=== PATIENT | female | born 1935 | race African-American/Black ===

== ENCOUNTER 2017-02-26 05:39 | Inpatient (IN) ==
[~2017-02-26 05:39] MED LIST: IPRATROPIUM 500 MCG/2.5 ML NEB RESP TX ONE
[2017-02-26] MEDS ORDERED: VANCOMYCIN INJ 1,000 MG in SODIUM CHLORIDE 0.9% 250 ML IV ONE (06:00)
[2017-02-26] MEDS ORDERED: ALBUTEROL 2.5 MG/3 ML NEB RESP TX ONE (06:00)
[2017-02-26] MEDS ORDERED: LORazepam 1 MG TABLET PO ONE (06:00)
[2017-02-26] MEDS ORDERED: FAMOTIDINE 20 MG TABLET PO ONE (06:00)
[2017-02-26] MEDS ORDERED: LORazepam 1 MG TABLET ONE (06:01)
[2017-02-26] MEDS ORDERED: VANCOMYCIN 1,000 MG VIAL ONE (06:01)
[2017-02-26] MEDS ORDERED: ceFAZolin 1,000 MG VIAL ONE (06:01)
[2017-02-26] MEDS ORDERED: FAMOTIDINE 20 MG TABLET ONE (06:01)
[2017-02-26] MEDS ORDERED: BACITRACIN OINT 0.9 GM PACK TOP ONE (06:36)
[2017-02-26] MEDS ORDERED: TRANEXAMIC ACID 1,000 MG/10 ML VIAL IV ONE (06:36)
[2017-02-26] MEDS ORDERED: LACTATED RINGERS 1,000 ML IV SCH (07:00)
[2017-02-26] MEDS ORDERED: diphenhydrAMINE CAP 25 MG CAPSULE PO PRN (07:23)
[2017-02-26] MEDS ORDERED: oxyCODONE IR 5 MG TABLET PO PRN ×2 (07:23)
[2017-02-26] MEDS ORDERED: MORPHINE 2 MG/1 ML SYRINGE IV PRN (07:23)
[2017-02-26] MEDS ORDERED: ONDANSETRON 4 MG/2 ML VIAL IV PRN ×2 (07:23→11:39)
[2017-02-26] MEDS ORDERED: ROPIVACAINE 0.5% 30 ML VIAL ONE (08:37)
[2017-02-26] MEDS ORDERED: PROPOFOL 200 MG/20 ML VIAL IV ONE (09:03)
[2017-02-26] MEDS ORDERED: ACETAMINOPHEN 1,000 MG/100 ML VIAL IV ONE (09:04)
[2017-02-26] MEDS ORDERED: fentaNYL 100 MCG/2 ML VIAL ONE (09:04)
[2017-02-26] MEDS ORDERED: ONDANSETRON 4 MG/2 ML VIAL ONE (09:04)
[2017-02-26] MEDS ORDERED: MIDAZOLAM 2 MG/2 ML VIAL ONE (09:04)
[2017-02-26] MEDS: HYDROmorphone 2 MG/1 ML VIAL IV PRN ×3 (11:40→12:05)
[2017-02-26] MEDS: POLYETHYLENE GLYCOL POWDER 17 GM PACK PO SCH (13:29)
[2017-02-26] MEDS: CARVEDILOL 3.125 MG TABLET PO SCH ×2 (13:29→21:32)
[2017-02-26] MEDS: KETOROLAC 15 MG/1 ML VIAL IV SCH ×3 (13:32→18:54)
[2017-02-26] MEDS: MORPHINE 2 MG/1 ML SYRINGE IV PRN ×2 (13:37→20:09)
[2017-02-26] MEDS: LACTATED RINGERS 1,000 ML IV SCH (13:40)
[2017-02-26] MEDS: MULTIVITAMIN (CENTRUM) TABLET PO SCH (15:43)
[2017-02-26] MEDS: VITAMIN E PO SCH (15:44)
[2017-02-26] MEDS: CYANOCOBALAMIN 500 MCG TABLET PO SCH (15:44)
[2017-02-26] MEDS: LISINOPRIL 20 MG TABLET PO SCH (15:44)
[2017-02-26] MEDS: POTASSIUM CHLORIDE 10 MEQ TABLET PO SCH (15:45)
[2017-02-26] MEDS: DOCUSATE SODIUM 100 MG CAPSULE PO SCH ×2 (15:46→21:32)
[2017-02-26] MEDS: hydroCHLOROthiazide 25 MG TABLET PO SCH (16:03)
[2017-02-26] MEDS: SPIRONOLACTONE 25 MG TABLET PO SCH (16:03)
[2017-02-26] MEDS: PANTOPRAZOLE 40 MG TABLET PO SCH (16:03)
[2017-02-26] MEDS: ceFAZolin 2,000 MG in PREMIX 1 EACH IV SCH ×2 (16:09→22:36)
[2017-02-26] MEDS: SIMVASTATIN 40 MG TABLET PO SCH (21:32)
[2017-02-26] MEDS: tiZANidine 4 MG TABLET PO SCH (21:32)
[2017-02-26] MEDS: ZALEPLON 5 MG CAPSULE PO PRN (22:19)
[2017-02-27] MEDS: MORPHINE 2 MG/1 ML SYRINGE IV PRN ×4 (02:46→17:56)
[2017-02-27] MEDS: KETOROLAC 15 MG/1 ML VIAL IV SCH ×3 (02:47→08:31)
[2017-02-27] MEDS: FONDAPARINUX 2.5 MG/0.5 ML SYRINGE SUBCUT SCH (03:03)
[2017-02-27] MEDS: LACTATED RINGERS 1,000 ML IV SCH ×2 (03:39)
[2017-02-27 05:52] LABS: Basophils % 0.2 % (0.0-0.8); Eosinophils % 0.5 % (0.00-10.9); Hematocrit 25.2 VOL% (35.7-47.0); Hemoglobin 8.1 GM/DL (12.0-16.0); Immature Granulocytes % 0.3 %; Immature Granulocytes Absolute 0.03 #; Lymphocytes # 0.9 10*3/uL (1.4-4.0); Lymphocytes % 10.5 % (21.3-54.2); Mean Corpuscular HGB Conc 32.1 GM/DL (32-36); Mean Corpuscular Hemoglobin 27 PG (27-34); Mean Corpuscular Volume 83.2 FL (87-102); Mean Platelet Volume 9.4 FL (9.6-12.0); Monocytes # 0.8 10*3/uL (0.11-0.8); Monocytes % 9.2 % (1.7-12.7); Neutrophils # 6.9 10*3/uL (1.4-7.4); Neutrophils % 79.3 % (38.7-73.9); Platelet Count 161 T/CUMM (130-400); Red Blood Count 3.03 MC/CUMM (3.8-5.5); Red Cell Distribution Width 15.6 % (9.3-17.3); White Blood Count 8.7 T/CUMM (4-12)
[2017-02-27 06:24] LABS: Calcium 8.8 MG/DL (8.5-10.1); Osmolality,Calculated 274.1 MOS/KG (273-304); Potassium 4.5 MMOL/L (3.5-5.1)
[2017-02-27] MEDS: DOCUSATE SODIUM 100 MG CAPSULE PO SCH ×2 (08:31→21:57)
[2017-02-27] MEDS: POTASSIUM CHLORIDE 10 MEQ TABLET PO SCH (08:31)
[2017-02-27] MEDS: hydroCHLOROthiazide 25 MG TABLET PO SCH (08:31)
[2017-02-27] MEDS: CYANOCOBALAMIN 500 MCG TABLET PO SCH (08:32)
[2017-02-27] MEDS: LISINOPRIL 20 MG TABLET PO SCH (08:32)
[2017-02-27] MEDS: PANTOPRAZOLE 40 MG TABLET PO SCH (08:32)
[2017-02-27] MEDS: POLYETHYLENE GLYCOL POWDER 17 GM PACK PO SCH (08:33)
[2017-02-27] MEDS: MULTIVITAMIN (CENTRUM) TABLET PO SCH (08:33)
[2017-02-27] MEDS: CARVEDILOL 3.125 MG TABLET PO SCH ×2 (08:33→21:57)
[2017-02-27] MEDS: SPIRONOLACTONE 25 MG TABLET PO SCH (08:33)
[2017-02-27] MEDS: VITAMIN E PO SCH (08:41)
[2017-02-27] MEDS ORDERED: SODIUM CHLORIDE 0.9% 1,000 ML IV PRN (11:04)
[2017-02-27] MEDS: FERROUS SULFATE 325 MG TABLET PO SCH (11:38)
[2017-02-27] MEDS: ASCORBIC ACID 500 MG TABLET PO SCH (11:38)
[2017-02-27] MEDS: MONTELUKAST 10 MG TABLET PO SCH (11:38)
[2017-02-27 11:44] LABS: % Iron Saturation 8.3 % (18-50)
[2017-02-27] MEDS: ZALEPLON 5 MG CAPSULE PO PRN (21:56)
[2017-02-27] MEDS: tiZANidine 4 MG TABLET PO SCH (21:57)
[2017-02-27] MEDS: AMITRIPTYLINE 25 MG TABLET PO SCH (21:57)
[2017-02-27] MEDS: SIMVASTATIN 40 MG TABLET PO SCH (21:58)
[2017-02-28] MEDS: FONDAPARINUX 2.5 MG/0.5 ML SYRINGE SUBCUT SCH (02:45)
[2017-02-28 06:20] LABS: Basophils % 0.1 % (0.0-0.8); Eosinophils # 0.1 10*3/uL (0.0-0.87); Eosinophils % 1.1 % (0.00-10.9); Hematocrit 25.8 VOL% (35.7-47.0); Hemoglobin 8.5 GM/DL (12.0-16.0); Immature Granulocytes % 0.4 %; Immature Granulocytes Absolute 0.03 #; Lymphocytes # 0.7 10*3/uL (1.4-4.0); Lymphocytes % 8.6 % (21.3-54.2); Mean Corpuscular HGB Conc 32.9 GM/DL (32-36); Mean Corpuscular Hemoglobin 27 PG (27-34); Mean Platelet Volume 9.4 FL (9.6-12.0); Monocytes % 11.8 % (1.7-12.7); Neutrophils # 6.4 10*3/uL (1.4-7.4); Platelet Count 136 T/CUMM (130-400); Red Blood Count 3.11 MC/CUMM (3.8-5.5); Red Cell Distribution Width 15.3 % (9.3-17.3); White Blood Count 8.2 T/CUMM (4-12)
[2017-02-28 06:46] LABS: Calcium 8.8 MG/DL (8.5-10.1); Magnesium 2.1 MG/DL (1.8-2.4); Osmolality,Calculated 263.8 MOS/KG (273-304); Potassium 4.9 MMOL/L (3.5-5.1)
[2017-02-28] MEDS: ASCORBIC ACID 500 MG TABLET PO SCH (08:42)
[2017-02-28] MEDS: DOCUSATE SODIUM 100 MG CAPSULE PO SCH ×2 (08:43→20:12)
[2017-02-28] MEDS: POTASSIUM CHLORIDE 10 MEQ TABLET PO SCH (08:43)
[2017-02-28] MEDS: CYANOCOBALAMIN 500 MCG TABLET PO SCH (08:44)
[2017-02-28] MEDS: MULTIVITAMIN (CENTRUM) TABLET PO SCH (08:44)
[2017-02-28] MEDS: PANTOPRAZOLE 40 MG TABLET PO SCH (08:44)
[2017-02-28] MEDS: LISINOPRIL 20 MG TABLET PO SCH (08:44)
[2017-02-28] MEDS: CARVEDILOL 3.125 MG TABLET PO SCH ×2 (08:45→20:15)
[2017-02-28] MEDS: hydroCHLOROthiazide 25 MG TABLET PO SCH (08:45)
[2017-02-28] MEDS: FERROUS SULFATE 325 MG TABLET PO SCH (08:45)
[2017-02-28] MEDS: MONTELUKAST 10 MG TABLET PO SCH (08:45)
[2017-02-28] MEDS: POLYETHYLENE GLYCOL POWDER 17 GM PACK PO SCH (08:46)
[2017-02-28] MEDS: SPIRONOLACTONE 25 MG TABLET PO SCH (08:46)
[2017-02-28] MEDS ORDERED: MAGNESIUM HYDROXIDE SUSP 30 ML UDCUP PO PRN (08:48)
[2017-02-28] MEDS: VITAMIN E PO SCH (08:56)
[2017-02-28] MEDS ORDERED: BISACODYL 10 MG SUPP RECTAL PRN (09:40)
[2017-02-28] MEDS: MORPHINE 2 MG/1 ML SYRINGE IV PRN (09:57)
[2017-02-28 15:05] LABS: Apearance,Urine Slightly Hazy (Clear); Bacteria,Urine Occasional /HPF (Few); Bilirubin,Urine Negative (Negative); Blood, Urine Negative (Negative); Glucose,Urine (UA) Negative (Negative); Hyaline Casts,Urine 7 /LPF (0-3); Ketones,Urine Negative (Negative); Mucus,Urine Occasional /LPF (Occasional); Nitrite,Urine Negative (Negative); Protein,Urine Negative; RBC,Urine 1 /HPF (0-4); Squamous Epithelial Cell,Urine Occasional /HPF (0-10); Urine Color Yellow (Yellow); Urine Specific Gravity 1.016 (1.001-1.035); Urine Urobilinogen < 2.0 EU/DL (0.2-1.0); WBC,Urine 2 /HPF (0-6)
[2017-02-28] MEDS: MAGNESIUM HYDROXIDE SUSP 30 ML UDCUP PO PRN (17:00)
[2017-02-28] MEDS: AMITRIPTYLINE 25 MG TABLET PO SCH (20:12)
[2017-02-28] MEDS: tiZANidine 4 MG TABLET PO SCH (20:14)
[2017-02-28] MEDS: SIMVASTATIN 40 MG TABLET PO SCH (20:14)
[2017-02-28] MEDS: ZALEPLON 5 MG CAPSULE PO PRN (21:33)
[2017-03-01] MEDS: FONDAPARINUX 2.5 MG/0.5 ML SYRINGE SUBCUT SCH (03:01)
[2017-03-01 03:15] LABS: Basophils % 0.1 % (0.0-0.8); Eosinophils # 0.1 10*3/uL (0.0-0.87); Eosinophils % 1.1 % (0.00-10.9); Hematocrit 26.4 VOL% (35.7-47.0); Hemoglobin 8.8 GM/DL (12.0-16.0); Immature Granulocytes % 0.4 %; Immature Granulocytes Absolute 0.03 #; Lymphocytes # 0.8 10*3/uL (1.4-4.0); Lymphocytes % 9.9 % (21.3-54.2); Mean Corpuscular HGB Conc 33.3 GM/DL (32-36); Mean Corpuscular Hemoglobin 28 PG (27-34); Mean Corpuscular Volume 83.3 FL (87-102); Monocytes # 0.9 10*3/uL (0.11-0.8); Monocytes % 10.8 % (1.7-12.7); Neutrophils # 6.6 10*3/uL (1.4-7.4); Neutrophils % 77.7 % (38.7-73.9); Platelet Count 169 T/CUMM (130-400); Red Blood Count 3.17 MC/CUMM (3.8-5.5); Red Cell Distribution Width 15.4 % (9.3-17.3); White Blood Count 8.5 T/CUMM (4-12)
[2017-03-01 03:37] LABS: Calcium 8.4 MG/DL (8.5-10.1); Magnesium 2.9 MG/DL (1.8-2.4); Osmolality,Calculated 264.1 MOS/KG (273-304); Potassium 5.5 MMOL/L (3.5-5.1)
[2017-03-01] MEDS: MAGNESIUM HYDROXIDE SUSP 30 ML UDCUP PO PRN (08:20)
[2017-03-01] MEDS: POLYETHYLENE GLYCOL POWDER 17 GM PACK PO SCH (08:21)
[2017-03-01] MEDS: CYANOCOBALAMIN 500 MCG TABLET PO SCH (08:43)
[2017-03-01] MEDS: FERROUS SULFATE 325 MG TABLET PO SCH (08:44)
[2017-03-01] MEDS: ASCORBIC ACID 500 MG TABLET PO SCH (08:44)
[2017-03-01] MEDS: PANTOPRAZOLE 40 MG TABLET PO SCH (08:45)
[2017-03-01] MEDS: POTASSIUM CHLORIDE 10 MEQ TABLET PO SCH (08:46)
[2017-03-01] MEDS: LISINOPRIL 20 MG TABLET PO SCH (08:46)
[2017-03-01] MEDS: MONTELUKAST 10 MG TABLET PO SCH (08:46)
[2017-03-01] MEDS: MULTIVITAMIN (CENTRUM) TABLET PO SCH (08:47)
[2017-03-01] MEDS: VITAMIN E PO SCH (08:48)
[2017-03-01] MEDS: DOCUSATE SODIUM 100 MG CAPSULE PO SCH ×2 (08:49→20:43)
[2017-03-01] MEDS: CARVEDILOL 3.125 MG TABLET PO SCH ×2 (08:50→20:43)
[2017-03-01] MEDS ORDERED: SODIUM PHOSPHATE ENEMA 133 ML BOTTLE RECTAL PRN (09:15)
[2017-03-01] MEDS ORDERED: SODIUM PHOSPHATE ENEMA 133 ML BOTTLE RECTAL ONE (09:15)
[2017-03-01] MEDS: SPIRONOLACTONE 25 MG TABLET PO SCH (13:38)
[2017-03-01] MEDS: hydroCHLOROthiazide 25 MG TABLET PO SCH (13:38)
[2017-03-01] MEDS: AMITRIPTYLINE 25 MG TABLET PO SCH (20:41)
[2017-03-01] MEDS: tiZANidine 4 MG TABLET PO SCH (20:43)
[2017-03-01] MEDS: ZALEPLON 5 MG CAPSULE PO PRN (20:43)
[2017-03-01] MEDS: SIMVASTATIN 40 MG TABLET PO SCH (20:43)
[2017-03-01] MEDS: MORPHINE 2 MG/1 ML SYRINGE IV PRN (20:44)
[2017-03-02] MEDS: FONDAPARINUX 2.5 MG/0.5 ML SYRINGE SUBCUT SCH (01:43)
[2017-03-02] MEDS: CARVEDILOL 3.125 MG TABLET PO SCH ×2 (09:28→20:39)
[2017-03-02] MEDS: FERROUS SULFATE 325 MG TABLET PO SCH (09:28)
[2017-03-02] MEDS: hydroCHLOROthiazide 25 MG TABLET PO SCH (09:28)
[2017-03-02] MEDS: ASCORBIC ACID 500 MG TABLET PO SCH (09:28)
[2017-03-02] MEDS: LISINOPRIL 20 MG TABLET PO SCH (09:29)
[2017-03-02] MEDS: MONTELUKAST 10 MG TABLET PO SCH (09:29)
[2017-03-02] MEDS: MULTIVITAMIN (CENTRUM) TABLET PO SCH (09:29)
[2017-03-02] MEDS: SPIRONOLACTONE 25 MG TABLET PO SCH (09:29)
[2017-03-02] MEDS: DOCUSATE SODIUM 100 MG CAPSULE PO SCH ×2 (09:29→20:38)
[2017-03-02] MEDS: CYANOCOBALAMIN 500 MCG TABLET PO SCH (09:29)
[2017-03-02] MEDS: PANTOPRAZOLE 40 MG TABLET PO SCH (09:30)
[2017-03-02] MEDS: POLYETHYLENE GLYCOL POWDER 17 GM PACK PO SCH (09:30)
[2017-03-02] MEDS: POTASSIUM CHLORIDE 10 MEQ TABLET PO SCH (09:30)
[2017-03-02] MEDS: VITAMIN E PO SCH (09:31)
[2017-03-02] MEDS: SIMVASTATIN 40 MG TABLET PO SCH (20:38)
[2017-03-02] MEDS: ZALEPLON 5 MG CAPSULE PO PRN (20:38)
[2017-03-02] MEDS: AMITRIPTYLINE 25 MG TABLET PO SCH (20:38)
[2017-03-02] MEDS: tiZANidine 4 MG TABLET PO SCH (20:39)
[2017-03-03] MEDS: FONDAPARINUX 2.5 MG/0.5 ML SYRINGE SUBCUT SCH (02:08)
[2017-03-03 04:28] LABS: Basophils % 0.3 % (0.0-0.8); Eosinophils # 0.2 10*3/uL (0.0-0.87); Eosinophils % 3.3 % (0.00-10.9); Hematocrit 27.8 VOL% (35.7-47.0); Hemoglobin 9.1 GM/DL (12.0-16.0); Immature Granulocytes % 0.5 %; Immature Granulocytes Absolute 0.03 #; Lymphocytes % 17.8 % (21.3-54.2); Mean Corpuscular HGB Conc 32.7 GM/DL (32-36); Mean Corpuscular Hemoglobin 28 PG (27-34); Mean Corpuscular Volume 84.8 FL (87-102); Mean Platelet Volume 10.3 FL (9.6-12.0); Monocytes # 1.2 10*3/uL (0.11-0.8); Monocytes % 19.9 % (1.7-12.7); Neutrophils # 3.4 10*3/uL (1.4-7.4); Neutrophils % 58.2 % (38.7-73.9); Platelet Count 202 T/CUMM (130-400); Red Blood Count 3.28 MC/CUMM (3.8-5.5); Red Cell Distribution Width 15.8 % (9.3-17.3); White Blood Count 5.8 T/CUMM (4-12)
[2017-03-03 04:43] LABS: Calcium 9.1 MG/DL (8.5-10.1); Magnesium 2.5 MG/DL (1.8-2.4); Osmolality,Calculated 267.5 MOS/KG (273-304); Potassium 5.2 MMOL/L (3.5-5.1)
[2017-03-03 05:50] LABS: Band Neutrophils 1 % (0-10); Eosinophils 3 % (0-10); Giant Platelets Few; Hypochromasia 1+; Lymphocytes 22 % (20-55); Ovalocytes Slight; Platelet Estimate Adequate; Segmented Neutrophils 64 % (50-85); Total Cells Counted 100
[2017-03-03] MEDS: MULTIVITAMIN (CENTRUM) TABLET PO SCH (08:25)
[2017-03-03] MEDS: CARVEDILOL 3.125 MG TABLET PO SCH (08:25)
[2017-03-03] MEDS: MONTELUKAST 10 MG TABLET PO SCH (08:26)
[2017-03-03] MEDS: CYANOCOBALAMIN 500 MCG TABLET PO SCH (08:26)
[2017-03-03] MEDS: LISINOPRIL 20 MG TABLET PO SCH (08:26)
[2017-03-03] MEDS: SPIRONOLACTONE 25 MG TABLET PO SCH (08:27)
[2017-03-03] MEDS: ASCORBIC ACID 500 MG TABLET PO SCH (08:27)
[2017-03-03] MEDS: hydroCHLOROthiazide 25 MG TABLET PO SCH (08:27)
[2017-03-03] MEDS: FERROUS SULFATE 325 MG TABLET PO SCH (08:29)
[2017-03-03] MEDS: DOCUSATE SODIUM 100 MG CAPSULE PO SCH (08:29)
[2017-03-03] MEDS: POLYETHYLENE GLYCOL POWDER 17 GM PACK PO SCH (08:29)
[2017-03-03] MEDS: PANTOPRAZOLE 40 MG TABLET PO SCH (08:29)
[2017-03-03] MEDS: POTASSIUM CHLORIDE 10 MEQ TABLET PO SCH (09:03)
[2017-03-03] MEDS: VITAMIN E PO SCH (09:03)
[2017-03-03 11:33] VITALS: BP 140/75
[2017-03-04] MEDS ORDERED: VITAMIN E 400 UNIT CAPSULE PO SCH (09:00)
== END 2017-03-03 13:17 | disposition swing bed (61) | DRG 470 ==
LOC: N.OR 05:39 → N.SDSINP 05:41 → N.3E 12:45
PROVIDERS: ADMIT Orthopaedic Surgery; ATTEND Orthopaedic Surgery

== ENCOUNTER 2017-07-28 05:46 | Inpatient (IN) ==
[2017-07-28] MEDS ORDERED: ceFAZolin 1,000 MG in SYRINGE 1 EACH IV ONE (06:00)
[2017-07-28] MEDS ORDERED: VANCOMYCIN INJ 1,000 MG in SODIUM CHLORIDE 0.9% 250 ML IV ONE (06:00)
[2017-07-28] MEDS ORDERED: VANCOMYCIN 1,000 MG VIAL ONE (06:12)
[2017-07-28] MEDS ORDERED: ceFAZolin 1,000 MG VIAL ONE (06:12)
[2017-07-28] MEDS ORDERED: BUPIVACAINE SPINAL 0.75% 2 ML AMP SPINAL ONE (06:14)
[2017-07-28] MEDS ORDERED: PANTOPRAZOLE 40 MG TABLET PO ONE (06:36)
[2017-07-28] MEDS ORDERED: BACITRACIN OINT 0.9 GM PACK TOP ONE (06:37)
[2017-07-28 07:00] LABS: INR 0.9; Partial Thromboplastin Time 25.2 SECS (0-40)
[2017-07-28] MEDS ORDERED: LACTATED RINGERS 1,000 ML IV SCH (07:00)
[2017-07-28] MEDS ORDERED: diphenhydrAMINE CAP 25 MG CAPSULE PO PRN (07:34)
[2017-07-28] MEDS ORDERED: ONDANSETRON 4 MG/2 ML VIAL IV PRN ×2 (07:34→09:21)
[2017-07-28] MEDS ORDERED: MORPHINE 2 MG/1 ML SYRINGE IV PRN (07:34)
[2017-07-28] MEDS ORDERED: oxyCODONE IR 5 MG TABLET PO PRN ×2 (07:34)
[2017-07-28] MEDS ORDERED: TRANEXAMIC ACID 1,000 MG/10 ML VIAL IV ONE (07:41)
[2017-07-28] MEDS ORDERED: ROPIVACAINE 0.5% 30 ML VIAL ONE ×2 (08:57→09:51)
[2017-07-28] MEDS ORDERED: VITAMIN E PO SCH (09:00)
[2017-07-28] MEDS ORDERED: MIDAZOLAM 2 MG/2 ML VIAL ONE (09:20)
[2017-07-28] MEDS ORDERED: fentaNYL 100 MCG/2 ML VIAL ONE (09:20)
[2017-07-28] MEDS ORDERED: PROPOFOL 200 MG/20 ML VIAL IV ONE (09:20)
[2017-07-28] MEDS ORDERED: SEVOFLURANE 1 UNIT/15 MINUTE INH ONE (09:20)
[2017-07-28] MEDS ORDERED: ACETAMINOPHEN 1,000 MG/100 ML VIAL IV ONE (09:21)
[2017-07-28] MEDS ORDERED: ROCURONIUM 100 MG/10 ML VIAL IV ONE (09:21)
[2017-07-28] MEDS ORDERED: PROPOFOL 500 MG/50 ML BOTTLE IV ONE (09:21)
[2017-07-28] MEDS ORDERED: NEOSTIGMINE 10 MG/10 ML VIAL ONE (09:21)
[2017-07-28] MEDS ORDERED: KETAMINE 500 MG/10 ML VIAL ONE (09:21)
[2017-07-28] MEDS ORDERED: GLYCOPYRROLATE 0.4 MG/2 ML VIAL ONE (09:21)
[2017-07-28] MEDS: HYDROmorphone 2 MG/1 ML VIAL IV PRN ×4 (09:28→09:50)
[2017-07-28] MEDS: LACTATED RINGERS 1,000 ML IV SCH ×3 (09:32→19:42)
[2017-07-28] MEDS ORDERED: MORPHINE 4 MG/1 ML VIAL IV PRN ×2 (10:00)
[2017-07-28] MEDS: FERROUS SULFATE 325 MG TABLET PO SCH ×2 (13:03→20:14)
[2017-07-28] MEDS: CALCIUM (CARBONATE)/VITAMIN D 600 MG-400 UNIT TABLET PO SCH (13:03)
[2017-07-28] MEDS: DOCUSATE SODIUM 100 MG CAPSULE PO SCH ×2 (13:03→20:15)
[2017-07-28] MEDS: MULTIVITAMIN (CENTRUM) TABLET PO SCH (13:03)
[2017-07-28] MEDS: SPIRONOLACTONE 25 MG TABLET PO SCH (13:03)
[2017-07-28] MEDS: CARVEDILOL 3.125 MG TABLET PO SCH ×2 (13:03→20:14)
[2017-07-28] MEDS: CYANOCOBALAMIN 500 MCG TABLET PO SCH (13:06)
[2017-07-28] MEDS: hydroCHLOROthiazide 25 MG TABLET PO SCH (13:06)
[2017-07-28] MEDS: ASCORBIC ACID 500 MG TABLET PO SCH ×2 (14:44→20:14)
[2017-07-28] MEDS: POTASSIUM CHLORIDE 10 MEQ TABLET PO SCH (14:44)
[2017-07-28] MEDS: LISINOPRIL 20 MG TABLET PO SCH (14:44)
[2017-07-28] MEDS: ceFAZolin 2,000 MG in PREMIX 1 EACH IV SCH ×2 (14:44→19:40)
[2017-07-28] MEDS: KETOROLAC 15 MG/1 ML VIAL IV SCH ×2 (14:44→19:40)
[2017-07-28] MEDS: PANTOPRAZOLE 40 MG TABLET PO SCH (17:16)
[2017-07-28] MEDS: SIMVASTATIN 40 MG TABLET PO SCH (20:14)
[2017-07-28] MEDS: AMITRIPTYLINE 25 MG TABLET PO SCH (20:14)
[2017-07-28] MEDS: tiZANidine 4 MG TABLET PO SCH (20:14)
[2017-07-29] MEDS: FONDAPARINUX 2.5 MG/0.5 ML SYRINGE SUBCUT SCH ×2 (01:15→23:05)
[2017-07-29] MEDS: KETOROLAC 15 MG/1 ML VIAL IV SCH ×2 (01:15→08:48)
[2017-07-29] MEDS: ZALEPLON 5 MG CAPSULE PO PRN ×2 (01:15→23:05)
[2017-07-29 06:00] LABS: Hematocrit 23.3 VOL% (35.7-47.0); Hemoglobin 7.3 GM/DL (12.0-16.0); Lymphocytes % 17.4 % (21.3-54.2); Mean Corpuscular HGB Conc 31.3 GM/DL (32-36); Mean Corpuscular Hemoglobin 28 PG (27-34); Mean Corpuscular Volume 88.3 FL (87-102); Mean Platelet Volume 9.5 FL (9.6-12.0); Neutrophils % 66.1 % (38.7-73.9); Platelet Count 157 T/CUMM (130-400); Red Blood Count 2.64 MC/CUMM (3.8-5.5); White Blood Count 4.7 T/CUMM (4-12)
[2017-07-29] MEDS: LACTATED RINGERS 1,000 ML IV SCH (06:00)
[2017-07-29 06:01] LABS: Basophils % 0.2 % (0.0-0.8); Eosinophils # 0.1 10*3/uL (0.0-0.87); Eosinophils % 1.7 % (0.00-10.9); Immature Granulocytes % 0.4 %; Immature Granulocytes Absolute 0.02 #; Lymphocytes # 0.8 10*3/uL (1.4-4.0); Monocytes # 0.7 10*3/uL (0.11-0.8); Monocytes % 14.2 % (1.7-12.7); Neutrophils # 3.1 10*3/uL (1.4-7.4)
[2017-07-29 06:18] LABS: Band Neutrophils 1 % (0-10); Eosinophils 1 % (0-10); Hypochromasia 1+; Lymphocytes 19 % (20-55); Microcytosis 1+; Ovalocytes Slight; Segmented Neutrophils 70 % (50-85); Total Cells Counted 100
[2017-07-29 06:19] LABS: Platelet Estimate Adequate
[2017-07-29 06:29] LABS: Calcium 8.5 MG/DL (8.5-10.1); Osmolality,Calculated 276.8 MOS/KG (273-304); Potassium 4.9 MMOL/L (3.5-5.1)
[2017-07-29] MEDS ORDERED: SODIUM CHLORIDE 0.9% 1,000 ML IV PRN (07:52)
[2017-07-29] MEDS ORDERED: FUROSEMIDE 20 MG/2 ML VIAL IV PRN (07:52)
[2017-07-29] MEDS: LISINOPRIL 20 MG TABLET PO SCH (08:35)
[2017-07-29] MEDS: CYANOCOBALAMIN 500 MCG TABLET PO SCH (08:35)
[2017-07-29] MEDS: FERROUS SULFATE 325 MG TABLET PO SCH ×2 (08:36→20:13)
[2017-07-29] MEDS: hydroCHLOROthiazide 25 MG TABLET PO SCH (08:36)
[2017-07-29] MEDS: CALCIUM (CARBONATE)/VITAMIN D 600 MG-400 UNIT TABLET PO SCH (08:36)
[2017-07-29] MEDS: SPIRONOLACTONE 25 MG TABLET PO SCH (08:36)
[2017-07-29] MEDS: MULTIVITAMIN (CENTRUM) TABLET PO SCH (08:36)
[2017-07-29] MEDS: POTASSIUM CHLORIDE 10 MEQ TABLET PO SCH (08:36)
[2017-07-29] MEDS: CARVEDILOL 3.125 MG TABLET PO SCH ×2 (08:37→20:13)
[2017-07-29] MEDS: ASCORBIC ACID 500 MG TABLET PO SCH ×2 (08:37→20:13)
[2017-07-29] MEDS: DOCUSATE SODIUM 100 MG CAPSULE PO SCH ×2 (08:37→20:13)
[2017-07-29] MEDS ORDERED: KETOROLAC 30 MG/1 ML VIAL ONE (08:44)
[2017-07-29] MEDS: CELECOXIB 200 MG CAPSULE PO SCH (13:47)
[2017-07-29] MEDS: PANTOPRAZOLE 40 MG TABLET PO SCH (18:20)
[2017-07-29] MEDS: MAGNESIUM HYDROXIDE SUSP 30 ML UDCUP PO PRN (20:13)
[2017-07-29] MEDS: tiZANidine 4 MG TABLET PO SCH (20:13)
[2017-07-29] MEDS: SIMVASTATIN 40 MG TABLET PO SCH (20:13)
[2017-07-29] MEDS: AMITRIPTYLINE 25 MG TABLET PO SCH (20:13)
[2017-07-30 05:28] LABS: Basophils % 0.3 % (0.0-0.8); Eosinophils # 0.1 10*3/uL (0.0-0.87); Eosinophils % 1.1 % (0.00-10.9); Hematocrit 28.2 VOL% (35.7-47.0); Hemoglobin 9.4 GM/DL (12.0-16.0); Immature Granulocytes % 0.4 %; Immature Granulocytes Absolute 0.03 #; Lymphocytes # 1.1 10*3/uL (1.4-4.0); Lymphocytes % 15.8 % (21.3-54.2); Mean Corpuscular HGB Conc 33.3 GM/DL (32-36); Mean Corpuscular Hemoglobin 28 PG (27-34); Mean Corpuscular Volume 84.4 FL (87-102); Mean Platelet Volume 9.3 FL (9.6-12.0); Monocytes # 0.7 10*3/uL (0.11-0.8); Monocytes % 10.1 % (1.7-12.7); Neutrophils # 5.1 10*3/uL (1.4-7.4); Neutrophils % 72.3 % (38.7-73.9); Platelet Count 164 T/CUMM (130-400); Red Blood Count 3.34 MC/CUMM (3.8-5.5); Red Cell Distribution Width 14.2 % (9.3-17.3)
[2017-07-30 06:00] LABS: Calcium 8.6 MG/DL (8.5-10.1); Osmolality,Calculated 276.8 MOS/KG (273-304); Potassium 4.7 MMOL/L (3.5-5.1)
[2017-07-30] MEDS: POLYETHYLENE GLYCOL POWDER 17 GM PACK PO PRN (09:47)
[2017-07-30] MEDS: SPIRONOLACTONE 25 MG TABLET PO SCH (09:50)
[2017-07-30] MEDS: CALCIUM (CARBONATE)/VITAMIN D 600 MG-400 UNIT TABLET PO SCH (09:50)
[2017-07-30] MEDS: MULTIVITAMIN (CENTRUM) TABLET PO SCH (09:50)
[2017-07-30] MEDS: CELECOXIB 200 MG CAPSULE PO SCH (09:50)
[2017-07-30] MEDS: hydroCHLOROthiazide 25 MG TABLET PO SCH (09:51)
[2017-07-30] MEDS: DOCUSATE SODIUM 100 MG CAPSULE PO SCH ×2 (09:51→21:06)
[2017-07-30] MEDS: FERROUS SULFATE 325 MG TABLET PO SCH ×2 (09:51→21:06)
[2017-07-30] MEDS: CARVEDILOL 3.125 MG TABLET PO SCH ×2 (09:51→21:06)
[2017-07-30] MEDS: LISINOPRIL 20 MG TABLET PO SCH (09:52)
[2017-07-30] MEDS: POTASSIUM CHLORIDE 10 MEQ TABLET PO SCH (09:52)
[2017-07-30] MEDS: ASCORBIC ACID 500 MG TABLET PO SCH ×2 (09:52→21:07)
[2017-07-30] MEDS: CYANOCOBALAMIN 500 MCG TABLET PO SCH (09:52)
[2017-07-30] MEDS: VITAMIN E 400 UNIT CAPSULE PO SCH (13:16)
[2017-07-30] MEDS: PANTOPRAZOLE 40 MG TABLET PO SCH (19:46)
[2017-07-30] MEDS: tiZANidine 4 MG TABLET PO SCH (21:06)
[2017-07-30] MEDS: AMITRIPTYLINE 25 MG TABLET PO SCH (21:06)
[2017-07-30] MEDS: SIMVASTATIN 40 MG TABLET PO SCH (21:07)
[2017-07-30] MEDS: MAGNESIUM HYDROXIDE SUSP 30 ML UDCUP PO PRN (21:48)
[2017-07-30] MEDS: ZALEPLON 5 MG CAPSULE PO PRN (23:28)
[2017-07-31] MEDS: FONDAPARINUX 2.5 MG/0.5 ML SYRINGE SUBCUT SCH (01:32)
[2017-07-31 05:25] LABS: Basophils % 0.1 % (0.0-0.8); Eosinophils # 0.2 10*3/uL (0.0-0.87); Eosinophils % 2.1 % (0.00-10.9); Hematocrit 28.9 VOL% (35.7-47.0); Hemoglobin 9.5 GM/DL (12.0-16.0); Immature Granulocytes % 0.4 %; Immature Granulocytes Absolute 0.03 #; Lymphocytes % 12.9 % (21.3-54.2); Mean Corpuscular HGB Conc 32.9 GM/DL (32-36); Mean Corpuscular Hemoglobin 28 PG (27-34); Mean Corpuscular Volume 85.5 FL (87-102); Mean Platelet Volume 9.6 FL (9.6-12.0); Monocytes # 0.9 10*3/uL (0.11-0.8); Monocytes % 11.3 % (1.7-12.7); Neutrophils # 5.6 10*3/uL (1.4-7.4); Neutrophils % 73.2 % (38.7-73.9); Platelet Count 184 T/CUMM (130-400); Red Blood Count 3.38 MC/CUMM (3.8-5.5); Red Cell Distribution Width 14.4 % (9.3-17.3); White Blood Count 7.6 T/CUMM (4-12)
[2017-07-31 05:52] LABS: Calcium 8.7 MG/DL (8.5-10.1); Potassium 5.1 MMOL/L (3.5-5.1)
[2017-07-31] MEDS: POLYETHYLENE GLYCOL POWDER 17 GM PACK PO PRN (07:47)
[2017-07-31] MEDS: CALCIUM (CARBONATE)/VITAMIN D 600 MG-400 UNIT TABLET PO SCH (09:22)
[2017-07-31] MEDS: FERROUS SULFATE 325 MG TABLET PO SCH (09:22)
[2017-07-31] MEDS: DOCUSATE SODIUM 100 MG CAPSULE PO SCH (09:22)
[2017-07-31] MEDS: SPIRONOLACTONE 25 MG TABLET PO SCH (09:22)
[2017-07-31] MEDS: hydroCHLOROthiazide 25 MG TABLET PO SCH (09:22)
[2017-07-31] MEDS: CARVEDILOL 3.125 MG TABLET PO SCH (09:22)
[2017-07-31] MEDS: MULTIVITAMIN (CENTRUM) TABLET PO SCH (09:22)
[2017-07-31] MEDS: CYANOCOBALAMIN 500 MCG TABLET PO SCH (09:23)
[2017-07-31] MEDS: POTASSIUM CHLORIDE 10 MEQ TABLET PO SCH (09:23)
[2017-07-31] MEDS: VITAMIN E 400 UNIT CAPSULE PO SCH (09:23)
[2017-07-31] MEDS: LISINOPRIL 20 MG TABLET PO SCH (09:23)
[2017-07-31] MEDS: ASCORBIC ACID 500 MG TABLET PO SCH (09:23)
[2017-07-31] MEDS ORDERED: BISACODYL 10 MG SUPP RECTAL PRN (09:42)
[2017-07-31 11:25] VITALS: BP 140/77
== END 2017-07-31 14:40 | disposition swing bed (61) | DRG 470 ==
LOC: N.OR 05:46 → N.SDSINP 05:48 → N.3E 09:24
PROVIDERS: ADMIT Orthopaedic Surgery; ATTEND Orthopaedic Surgery

== ENCOUNTER 2021-04-14 11:48 | Inpatient (IN) ==
[2021-04-14] MEDS ORDERED: CALCIUM CARBONATE CHEW 500 MG TABLET PO PRN (14:25)
[2021-04-14] MEDS ORDERED: SIMETHICONE CHEW 125 MG TABLET PO PRN (14:25)
[2021-04-14] MEDS ORDERED: GLUCAGON 1 MG VIAL IM PRN (14:25)
[2021-04-14] MEDS ORDERED: ACETAMINOPHEN 325 MG TABLET PO PRN (14:25)
[2021-04-14] MEDS ORDERED: DOCUSATE SODIUM 100 MG CAPSULE PO PRN (14:25)
[2021-04-14] MEDS ORDERED: ONDANSETRON 4 MG/2 ML VIAL IV PRN (14:25)
[2021-04-14] MEDS ORDERED: DEXTROSE 50% 25 GM/50 ML SYRINGE IV PRN (14:36)
[2021-04-14 16:13] LABS: Basophils % 0.2 % (0.0-0.8); Eosinophils % 0.2 % (0.00-10.9); Hematocrit 32.4 VOL% (35.7-47.0); Hemoglobin 10.2 GM/DL (12.0-16.0); Immature Granulocytes % 0.4 %; Immature Granulocytes Absolute 0.02 #; Lymphocytes % 22.4 % (21.3-54.2); Mean Corpuscular HGB Conc 31.5 GM/DL (32-36); Mean Corpuscular Volume 85.5 FL (87-102); Mean Platelet Volume 9.6 FL (9.6-12.0); Monocytes % 13.6 % (1.7-12.7); Neutrophils % 63.2 % (38.7-73.9); Platelet Count 220 T/CUMM (130-400); Red Blood Count 3.79 MC/CUMM (3.8-5.5); Red Cell Distribution Width 14.4 % (9.3-17.3); White Blood Count 4.6 T/CUMM (4-12)
[2021-04-14 16:36] LABS: Alanine Aminotransferase 32 U/L (13-56); Albumin 3.1 G/DL (3.4-5.0); Alkaline Phosphatase 46 U/L (45-117); Aspartate Amino Transferase 47 U/L (0-37); Bilirubin,Total < 0.39 MG/DL (0.20-1.00); Blood Urea Nitrogen 20 MG/DL (7-18); Calcium 9.5 MG/DL (8.5-10.1); Carbon Dioxide 25 MMOL/L (21-32); Estimated Glom Filtration Rate 44 ML/MIN; Glucose 100 MG/DL (74-106); Osmolality,Calculated 260.9 MOS/KG (273-304); Potassium 4.2 MMOL/L (3.5-5.1); Sodium 129 MMOL/L (136-145); Total Protein 7.2 G/DL (6.4-8.2)
[2021-04-14] MEDS: DILTIAZEM 30 MG TABLET PO SCH ×2 (17:26→20:14)
[2021-04-14] MEDS: APIXABAN 5 MG TABLET PO SCH ×2 (17:26→20:13)
[2021-04-14] MEDS: PANTOPRAZOLE 40 MG TABLET PO SCH (17:26)
[2021-04-14] MEDS: MELATONIN 3 MG TABLET PO PRN (21:56)
[2021-04-15 06:52] LABS: Basophils % 0.4 % (0.0-0.8); Eosinophils % 1.6 % (0.00-10.9); Hematocrit 30.3 VOL% (35.7-47.0); Hemoglobin 9.8 GM/DL (12.0-16.0); Immature Granulocytes % 0.4 %; Immature Granulocytes Absolute 0.01 #; Lymphocytes # 1.1 10*3/uL (1.4-4.0); Lymphocytes % 44.8 % (21.3-54.2); Mean Corpuscular HGB Conc 32.3 GM/DL (32-36); Mean Corpuscular Volume 82.6 FL (87-102); Mean Platelet Volume 9.7 FL (9.6-12.0); Monocytes % 16.3 % (1.7-12.7); Neutrophils % 36.5 % (38.7-73.9); Platelet Count 222 T/CUMM (130-400); Red Blood Count 3.67 MC/CUMM (3.8-5.5); Red Cell Distribution Width 14.4 % (9.3-17.3); White Blood Count 2.5 T/CUMM (4-12)
[2021-04-15 07:11] LABS: Calcium 9.5 MG/DL (8.5-10.1); Osmolality,Calculated 266.4 MOS/KG (273-304); Potassium 3.6 MMOL/L (3.5-5.1)
[2021-04-15] MEDS ORDERED: POTASSIUM CHLORIDE 20 MEQ TABLET PO ONE (07:53)
[2021-04-15 08:15] LABS: Eosinophils 1 % (0-10); Hypochromia 1+; Lymphocytes 45 % (20-55); Microcytosis 1+; Segmented Neutrophils 37 % (50-85); Total Cells Counted 100
[2021-04-15 08:16] LABS: Ovalocytes Slight; Platelet Estimate Normal
[2021-04-15] MEDS: PANTOPRAZOLE 40 MG TABLET PO SCH (10:45)
[2021-04-15] MEDS: APIXABAN 5 MG TABLET PO SCH ×2 (10:45→21:42)
[2021-04-15] MEDS: DILTIAZEM 30 MG TABLET PO SCH ×4 (10:45→21:41)
[2021-04-15] MEDS ORDERED: guaiFENesin/DM ER 600-30 MG TABLET PO PRN (10:58)
[2021-04-15] MEDS ORDERED: AMIODARONE INJ 150 MG in DEXTROSE 5% 100 ML IV ONE (14:02)
[2021-04-15] MEDS ORDERED: ADENOSINE 6 MG/2 ML VIAL IV ONE ×2 (14:10)
[2021-04-15] MEDS ORDERED: AMIODARONE INJ 450 MG in DEXTROSE 5% 241 ML IV SCH (14:30)
[2021-04-15] MEDS: METOPROLOL TARTRATE 25 MG TABLET PO SCH (21:42)
[2021-04-15] MEDS: AMIODARONE INJ 450 MG in DEXTROSE 5% 241 ML IV SCH (21:43)
[2021-04-15] MEDS: MELATONIN 3 MG TABLET PO PRN (21:50)
[2021-04-16 07:48] LABS: Basophils % 0.3 % (0.0-0.8); Eosinophils # 0.1 10*3/uL (0.0-0.87); Eosinophils % 2.5 % (0.00-10.9); Hemoglobin 10.4 GM/DL (12.0-16.0); Immature Granulocytes % 0.3 %; Immature Granulocytes Absolute 0.01 #; Lymphocytes # 1.3 10*3/uL (1.4-4.0); Lymphocytes % 39.6 % (21.3-54.2); Mean Corpuscular HGB Conc 31.5 GM/DL (32-36); Mean Corpuscular Volume 83.8 FL (87-102); Mean Platelet Volume 9.7 FL (9.6-12.0); Neutrophils % 40.3 % (38.7-73.9); Platelet Count 209 T/CUMM (130-400); Red Blood Count 3.94 MC/CUMM (3.8-5.5); Red Cell Distribution Width 14.6 % (9.3-17.3); White Blood Count 3.2 T/CUMM (4-12)
[2021-04-16 08:09] LABS: Calcium 9.6 MG/DL (8.5-10.1); Osmolality,Calculated 268.4 MOS/KG (273-304); Potassium 3.8 MMOL/L (3.5-5.1)
[2021-04-16 08:27] LABS: Eosinophils 3 % (0-10); Lymphocytes 42 % (20-55); Nucleated Red Blood Cells 1 (0-5); Segmented Neutrophils 33 % (50-85); Total Cells Counted 100
[2021-04-16 08:28] LABS: Hypochromia Slight; Microcytosis Slight; Platelet Estimate Adequate
[2021-04-16] MEDS: METOPROLOL TARTRATE 25 MG TABLET PO SCH (08:47)
[2021-04-16] MEDS: PANTOPRAZOLE 40 MG TABLET PO SCH (08:47)
[2021-04-16] MEDS: APIXABAN 5 MG TABLET PO SCH ×2 (08:47→20:24)
[2021-04-16] MEDS: DILTIAZEM 30 MG TABLET PO SCH (08:47)
[2021-04-16] MEDS: DILTIAZEM CD 180 MG CAPSULE PO SCH (10:06)
[2021-04-16] MEDS ORDERED: MAGNESIUM SULF RIDER 2 GM/50 ML PREMIX IV ONE (10:34)
[2021-04-16] MEDS ORDERED: POTASSIUM CHLORIDE 20 MEQ TABLET PO ONE (10:35)
[2021-04-16] MEDS ORDERED: diphenhydrAMINE CAP 25 MG CAPSULE PO PRN (10:44)
[2021-04-16] MEDS: AMIODARONE 200 MG TABLET PO SCH ×2 (11:58→20:24)
[2021-04-16] MEDS: AMIODARONE INJ 450 MG in DEXTROSE 5% 241 ML IV SCH (12:08)
[2021-04-16] MEDS: ASCORBIC ACID 500 MG TABLET PO SCH (20:24)
[2021-04-16] MEDS ORDERED: TEMAZEPAM 7.5 MG CAPSULE PO PRN (20:38)
[2021-04-16] MEDS ORDERED: AMITRIPTYLINE 25 MG TABLET PO SCH (21:00)
[2021-04-16] MEDS ORDERED: LATANOPROST 0.005% OPH SOLN 2.5 ML BOTTLE BOTH EYES SCH (21:00)
[2021-04-17 05:42] LABS: Basophils % 0.2 % (0.0-0.8); Eosinophils # 0.1 10*3/uL (0.0-0.87); Eosinophils % 3.1 % (0.00-10.9); Hematocrit 31.5 VOL% (35.7-47.0); Hemoglobin 10.2 GM/DL (12.0-16.0); Immature Granulocytes % 0.2 %; Immature Granulocytes Absolute 0.01 #; Lymphocytes # 1.2 10*3/uL (1.4-4.0); Lymphocytes % 27.6 % (21.3-54.2); Mean Corpuscular HGB Conc 32.4 GM/DL (32-36); Mean Corpuscular Volume 82.9 FL (87-102); Mean Platelet Volume 9.2 FL (9.6-12.0); Monocytes % 13.9 % (1.7-12.7); Platelet Count 230 T/CUMM (130-400); Red Cell Distribution Width 14.5 % (9.3-17.3); White Blood Count 4.2 T/CUMM (4-12)
[2021-04-17 06:01] LABS: Calcium 9.4 MG/DL (8.5-10.1); Osmolality,Calculated 266.4 MOS/KG (273-304); Potassium 3.9 MMOL/L (3.5-5.1)
[2021-04-17] MEDS: ASCORBIC ACID 500 MG TABLET PO SCH (08:11)
[2021-04-17] MEDS: PANTOPRAZOLE 40 MG TABLET PO SCH (08:11)
[2021-04-17] MEDS: APIXABAN 5 MG TABLET PO SCH (08:11)
[2021-04-17] MEDS: AMIODARONE 200 MG TABLET PO SCH (08:11)
[2021-04-17] MEDS: DILTIAZEM CD 180 MG CAPSULE PO SCH (08:11)
[2021-04-17] MEDS ORDERED: LINACLOTIDE 145 MCG CAPSULE PO SCH (09:00)
[2021-04-17] MEDS ORDERED: MONTELUKAST 10 MG TABLET PO SCH (09:00)
[2021-04-17 14:34] VITALS: BP 147/78
[2021-04-18] MEDS ORDERED: ROSUVASTATIN 20 MG TABLET PO SCH (09:00)
[2021-04-24] MEDS ORDERED: AMIODARONE 200 MG TABLET PO SCH (09:00)
== END 2021-04-17 16:07 | disposition home or self-care (01) | DRG 309 ==
LOC: SUATTDRO 13:39 → N.TELES 13:39
PROVIDERS: ADMIT Internal Medicine; ATTEND Hospitalist

== ENCOUNTER 2021-06-20 12:49 | Observation (INO) ==
[2021-06-20] MEDS ORDERED: ALUMINUM/MAGNES/SIMETH MAX STR 30 ML UDCUP PO PRN (13:28)
[2021-06-20] MEDS ORDERED: ONDANSETRON 4 MG/2 ML VIAL IV PRN (13:28)
[2021-06-20] MEDS ORDERED: hydrALAZINE 20 MG/1 ML VIAL IV PRN (13:37)
[2021-06-20] MEDS ORDERED: NITROGLYCERIN SL 0.4 MG TABLET SL PRN (14:55)
[2021-06-20] MEDS: ENOXAPARIN 40 MG/0.4 ML SYRINGE SUBCUT SCH (15:18)
[2021-06-20] MEDS: FUROSEMIDE 40 MG/4 ML VIAL IV SCH ×2 (15:18→17:08)
[2021-06-20 15:19] LABS: Basophils # 0.1 10*3/uL (0.0-0.2); Basophils % 1.1 % (0.0-0.8); Eosinophils # 0.2 10*3/uL (0.0-0.87); Eosinophils % 3.7 % (0.00-10.9); Hematocrit 33.4 VOL% (35.7-47.0); Hemoglobin 10.2 GM/DL (12.0-16.0); Immature Granulocytes % 0.2 %; Immature Granulocytes Absolute 0.01 #; Lymphocytes # 1.2 10*3/uL (1.4-4.0); Lymphocytes % 26.2 % (21.3-54.2); Mean Corpuscular HGB Conc 30.5 GM/DL (32-36); Mean Corpuscular Volume 87.7 FL (87-102); Mean Platelet Volume 9.7 FL (9.6-12.0); Monocytes % 15.2 % (1.7-12.7); Neutrophils % 53.6 % (38.7-73.9); Platelet Count 277 T/CUMM (130-400); Red Blood Count 3.81 MC/CUMM (3.8-5.5); Red Cell Distribution Width 16.8 % (9.3-17.3); White Blood Count 4.6 T/CUMM (4-12)
[2021-06-20 15:47] LABS: Alanine Aminotransferase 39 U/L (13-56); Albumin 3.4 G/DL (3.4-5.0); Alkaline Phosphatase 86 U/L (45-117); Aspartate Amino Transferase 42 U/L (0-37); Bilirubin,Total < 0.39 MG/DL (0.20-1.00); Blood Urea Nitrogen 17 MG/DL (7-18); Calcium 9.9 MG/DL (8.5-10.1); Carbon Dioxide 25 MMOL/L (21-32); Estimated Glom Filtration Rate 52 ML/MIN; Glucose 111 MG/DL (74-106); Osmolality,Calculated 277.7 MOS/KG (273-304); Potassium 4.4 MMOL/L (3.5-5.1); Sodium 138 MMOL/L (136-145); Total Protein 7.4 G/DL (6.4-8.2)
[2021-06-20] MEDS: ROSUVASTATIN 20 MG TABLET PO SCH (20:27)
[2021-06-20] MEDS: ZALEPLON 5 MG CAPSULE PO PRN (20:27)
[2021-06-20] MEDS: ACETAMINOPHEN 325 MG TABLET PO PRN (22:46)
[2021-06-21 05:40] LABS: Basophils # 0.1 10*3/uL (0.0-0.2); Basophils % 1.4 % (0.0-0.8); Eosinophils # 0.2 10*3/uL (0.0-0.87); Eosinophils % 5.3 % (0.00-10.9); Hematocrit 29.9 VOL% (35.7-47.0); Hemoglobin 9.4 GM/DL (12.0-16.0); Lymphocytes # 1.3 10*3/uL (1.4-4.0); Lymphocytes % 34.6 % (21.3-54.2); Mean Corpuscular HGB Conc 31.4 GM/DL (32-36); Mean Corpuscular Volume 85.9 FL (87-102); Mean Platelet Volume 9.8 FL (9.6-12.0); Monocytes % 18.6 % (1.7-12.7); Neutrophils % 40.1 % (38.7-73.9); Platelet Count 242 T/CUMM (130-400); Red Blood Count 3.48 MC/CUMM (3.8-5.5); Red Cell Distribution Width 16.6 % (9.3-17.3); White Blood Count 3.6 T/CUMM (4-12)
[2021-06-21 06:05] LABS: Calcium 9.5 MG/DL (8.5-10.1); Osmolality,Calculated 276.7 MOS/KG (273-304); Potassium 3.8 MMOL/L (3.5-5.1); Risk Ratio 1.58
[2021-06-21 06:21] LABS: Anisocytosis 2+; Band Neutrophils 1 % (0-10); Burr Cells Few; Eosinophils 6 % (0-10); Hypochromia Slight; Lymphocytes 36 % (20-55); Macrocytosis 1+; Ovalocytes Few; Platelet Estimate Normal; Segmented Neutrophils 41 % (50-85); Total Cells Counted 100
[2021-06-21] MEDS ORDERED: HEPARIN/NACL 0.9% 2 UNITS/ML 2,000 UNIT/1,000 ML BAG IV ONE (06:49)
[2021-06-21] MEDS ORDERED: LIDOCAINE 1%/EPI INJ 20 ML VIAL ONE (06:49)
[2021-06-21] MEDS ORDERED: MIDAZOLAM 2 MG/2 ML VIAL ONE (07:04)
[2021-06-21] MEDS ORDERED: fentaNYL 100 MCG/2 ML VIAL ONE (07:05)
[2021-06-21] MEDS ORDERED: diphenhydrAMINE 50 MG/1 ML VIAL ONE (07:27)
[2021-06-21] MEDS ORDERED: diphenhydrAMINE CAP 25 MG CAPSULE PO ONE (07:30)
[2021-06-21] MEDS ORDERED: DIAZEPAM 5 MG TABLET PO ONE (07:30)
[2021-06-21] MEDS ORDERED: DICLOFENAC 1% GEL 100 GM TUBE TOP PRN (07:40)
[2021-06-21] MEDS ORDERED: cloNIDine 0.1 MG TABLET PO PRN (08:20)
[2021-06-21] MEDS: CALCIUM (CARBONATE)/VITAMIN D 600 MG-400 UNIT TABLET PO SCH (08:47)
[2021-06-21] MEDS: MONTELUKAST 10 MG TABLET PO SCH (08:47)
[2021-06-21] MEDS: ASCORBIC ACID 500 MG TABLET PO SCH ×2 (08:47→20:36)
[2021-06-21] MEDS: VALSARTAN 160 MG TABLET PO SCH (08:47)
[2021-06-21] MEDS: VITAMIN E 400 UNIT CAPSULE PO SCH (08:47)
[2021-06-21] MEDS: carvediloL 6.25 MG TABLET PO SCH ×2 (08:48→20:36)
[2021-06-21] MEDS: FERROUS SULFATE 325 MG TABLET PO SCH (08:48)
[2021-06-21] MEDS ORDERED: lisinopriL 10 MG TABLET PO SCH (09:00)
[2021-06-21] MEDS ORDERED: DILTIAZEM CD 180 MG CAPSULE PO SCH (09:00)
[2021-06-21] MEDS ORDERED: PANTOPRAZOLE 40 MG TABLET PO SCH ×2 (09:00→17:00)
[2021-06-21] MEDS ORDERED: ELDERBERRY FRUIT AND FLOWER PO SCH (09:00)
[2021-06-21] MEDS ORDERED: AMIODARONE 200 MG TABLET PO SCH (09:00)
[2021-06-21] MEDS: GLUCOSAMINE 500 MG TABLET PO SCH (11:36)
[2021-06-21] MEDS: LINACLOTIDE 145 MCG CAPSULE PO SCH (11:36)
[2021-06-21] MEDS: FUROSEMIDE 40 MG/4 ML VIAL IV SCH (14:39)
[2021-06-21] MEDS: ENOXAPARIN 40 MG/0.4 ML SYRINGE SUBCUT SCH (16:05)
[2021-06-21] MEDS: ROSUVASTATIN 20 MG TABLET PO SCH (20:36)
[2021-06-21] MEDS: ZALEPLON 5 MG CAPSULE PO PRN (20:36)
[2021-06-21] MEDS ORDERED: LATANOPROST 0.005% OPH SOLN 2.5 ML BOTTLE BOTH EYES SCH (21:00)
[2021-06-21] MEDS ORDERED: tiZANidine 4 MG TABLET PO SCH (21:00)
[2021-06-21] MEDS ORDERED: AMITRIPTYLINE 25 MG TABLET PO SCH (21:00)
[2021-06-22 05:22] LABS: Basophils % 0.9 % (0.0-0.8); Eosinophils # 0.2 10*3/uL (0.0-0.87); Eosinophils % 4.7 % (0.00-10.9); Hematocrit 29.4 VOL% (35.7-47.0); Hemoglobin 9.1 GM/DL (12.0-16.0); Immature Granulocytes % 0.3 %; Immature Granulocytes Absolute 0.01 #; Lymphocytes # 0.9 10*3/uL (1.4-4.0); Lymphocytes % 26.3 % (21.3-54.2); Mean Corpuscular Volume 85.5 FL (87-102); Mean Platelet Volume 9.9 FL (9.6-12.0); Monocytes % 20.1 % (1.7-12.7); Neutrophils % 47.7 % (38.7-73.9); Platelet Count 243 T/CUMM (130-400); Red Blood Count 3.44 MC/CUMM (3.8-5.5); Red Cell Distribution Width 16.5 % (9.3-17.3); White Blood Count 3.4 T/CUMM (4-12)
[2021-06-22 06:05] LABS: Calcium 9.1 MG/DL (8.5-10.1); Osmolality,Calculated 281.4 MOS/KG (273-304); Potassium 3.3 MMOL/L (3.5-5.1)
[2021-06-22 06:17] LABS: Anisocytosis 2+; Band Neutrophils 4 % (0-10); Burr Cells Few; Eosinophils 7 % (0-10); Hypochromia 1+; Lymphocytes 22 % (20-55); Nucleated Red Blood Cells 1 (0-5); Ovalocytes Few; Platelet Estimate Normal; Segmented Neutrophils 51 % (50-85); Target Cells Few; Total Cells Counted 100
[2021-06-22] MEDS: carvediloL 6.25 MG TABLET PO SCH (11:42)
[2021-06-22] MEDS: CALCIUM (CARBONATE)/VITAMIN D 600 MG-400 UNIT TABLET PO SCH (11:42)
[2021-06-22] MEDS: FERROUS SULFATE 325 MG TABLET PO SCH (11:42)
[2021-06-22] MEDS: GLUCOSAMINE 500 MG TABLET PO SCH (11:42)
[2021-06-22] MEDS: LINACLOTIDE 145 MCG CAPSULE PO SCH (11:43)
[2021-06-22] MEDS: MONTELUKAST 10 MG TABLET PO SCH (11:43)
[2021-06-22] MEDS: VITAMIN E 400 UNIT CAPSULE PO SCH (11:43)
[2021-06-22] MEDS: ASCORBIC ACID 500 MG TABLET PO SCH (11:43)
[2021-06-22] MEDS: VALSARTAN 160 MG TABLET PO SCH (11:45)
[2021-06-22] MEDS: FUROSEMIDE 40 MG/4 ML VIAL IV SCH (11:47)
[2021-06-22] MEDS: ACETAMINOPHEN 325 MG TABLET PO PRN (12:03)
[2021-06-22 12:11] VITALS: BP 167/73
== END 2021-06-22 15:15 | disposition home or self-care (01) ==
LOC: N.TELES 13:47 → INTOOBSV 13:47
PROVIDERS: ADMIT Internal Medicine Interventional Cardiology; ATTEND Internal Medicine Interventional Cardiology
PROC: CLCCHCL (ICD-10-PCS; 2021-06-21 07:45)